=== PATIENT | female | born 1965 | race Caucasian/White ===

== ENCOUNTER 2017-09-23 14:26 | Emergency (ER) | payer MEDICAID ==
[~2017-09-23] VITALS: Ht 177.8 cm; Wt 86.0 kg
[2017-09-23] MEDS ORDERED: LIDOcaine 1.5% w/epinephrine 1:200,000 5ml ampul IJ ONE (17:00)
[2017-09-23 18:02] VITALS: BP 118/72
== END 2017-09-23 18:00 | disposition home or self-care (01) ==
LOC: ER 14:26
DX: R18.8 Other ascites (principal); I95.9 Hypotension, unspecified; Z88.1 Allergy status to other antibiotic agents
CPT/HCPCS: 49083; 99285; J3490

== ENCOUNTER 2017-10-01 16:50 | Emergency (ER) | payer MEDICAID ==
[~2017-10-01] VITALS: Ht 177.8 cm; Wt 85.0 kg
[~2017-10-01 16:50] MED LIST: FURO40TA4 PO; LACT10SO PO; MAGN400C PO; POTA10TA15 PO; RIFA550T PO; SPIR50TA3 PO
[2017-10-01 17:50] LABS: BASOPHILS # (AUTO) 0.1 X10'3 (0-0.2); BASOPHILS % (AUTO) 0.7 % (0-1); EOSINOPHILS # (AUTO) 0.2 X10'3 (0-0.9); EOSINOPHILS % (AUTO) 2.4 % (0-6); HEMATOCRIT 28.5 % (35.0-45.0); HEMOGLOBIN 9.6 g/dl (12.0-16.0); LYMPHOCYTES # (AUTO) 2.1 X10'3 (1.1-4.8); LYMPHOCYTES % (AUTO) 25.2 % (21-51); MEAN CORPUSCULAR HEMOGLOBIN 37.1 PG (27.0-31.0); MEAN CORPUSCULAR HGB CONC 33.8 % (33.0-36.5); MEAN CORPUSCULAR VOLUME 109.7 FL (78-98); MEAN PLATELET VOLUME 7.3 FL (7.4-10.4); MONOCYTES # (AUTO) 0.7 X10'3 (0-0.9); MONOCYTES % (AUTO) 8.8 % (2-12); NEUTROPHILS # (AUTO) 5.1 X10'3 (1.8-7.7); NEUTROPHILS % (AUTO) 62.9 % (42-75); PLATELET COUNT 282 X10'3 (140-440); WHITE BLOOD COUNT 8.2 X10'3 (4.5-11.0)
[2017-10-01 17:59] LABS: INR 1.6 INR; PARTIAL THROMBOPLASTIN TIME 27 SECONDS (22-32); PROTHROMBIN TIME 16.7 SECONDS (9.0-12.0)
[2017-10-01 18:03] LABS: ALANINE AMINOTRANSFERASE 52 U/L (12-78); ALBUMIN 2.3 G/DL (3.4-5.0); ALKALINE PHOSPHATASE 149 IU/L (46-116); ANION GAP 11 (8-16); ASPARTATE AMINO TRANSFERASE 105 U/L (10-37); BILIRUBIN,TOTAL 6.7 MG/DL (0.1-1.0); BLOOD UREA NITROGEN 10 MG/DL (7-18); BUN/CREATININE RATIO 8.3 (6.6-38.0); CALCIUM 8.7 MG/DL (8.5-10.1); CHLORIDE 99 MMOL/L (99-107); ETHANOL < 0.010 GM/DL (0.0-0.010); GLUCOSE 93 MG/DL (70-104); MAGNESIUM 1.8 MG/DL (1.5-2.4); SODIUM 132 MMOL/L (135-145); TOTAL CARBON DIOXIDE 22.5 MMOL/L (24-32); eGFR 48 ML/MIN
[2017-10-01 18:07] LABS: ALBUMIN/GLOBULIN RATIO 0.5 (1.1-1.5); TOTAL PROTEIN 7.2 G/DL (6.4-8.2)
[2017-10-01 18:24] VITALS: BP 134/68
[2017-10-01] MEDS ORDERED: FURO-149 PO (18:54)
== END 2017-10-01 19:06 | disposition home or self-care (01) ==
LOC: ER 16:50
DX: K70.31 Alcoholic cirrhosis of liver with ascites (principal); R60.9 Edema, unspecified; Z88.1 Allergy status to other antibiotic agents; Z79.899 Other long term (current) drug therapy
CPT/HCPCS: 36415; 80053; 80320; 82140; 83735; 85025; 85610; 85730; 93005; 99285

== ENCOUNTER 2017-10-04 07:07 | Day surgery (SDC) | payer MEDICAID ==
[2017-10-04] VITALS (7 sets, daily range): BP systolic 110–123; BP diastolic 60–67
[~2017-10-04] VITALS: Ht 177.8 cm; Wt 88.3 kg
[~2017-10-04 07:07] MED LIST changes: +FURO-149 PO; +LIDOcaine 1% 30ml preserv. free vial SQ ONE
[2017-10-04] MEDS ORDERED: albumin (human) 25% 100 ML IV solution IV PRN (07:30)
[2017-10-04] MEDS ORDERED: normal saline 1000ml 1,000 ML IV PRN (07:30)
== END 2017-10-04 10:05 | disposition home or self-care (01) ==
LOC: SSTAY O 07:07
PROVIDERS: ATTEND Radiology Diagnostic Radiology
DX: K70.31 Alcoholic cirrhosis of liver with ascites (principal); F10.21 Alcohol dependence, in remission; I95.9 Hypotension, unspecified; Z88.1 Allergy status to other antibiotic agents; Z79.01 Long term (current) use of anticoagulants; Z79.899 Other long term (current) drug therapy; Z98.890 Other specified postprocedural states; Z86.14 Personal history of Methicillin resistant Staphylococcus aureus infection
CPT/HCPCS: 49083; A6257; J3490; J7030; P9047

== ENCOUNTER 2017-10-11 07:06 | Day surgery (SDC) | payer MEDICAID ==
[~2017-10-11] VITALS: Ht 177.8 cm; Wt 85.9 kg
[2017-10-11] VITALS (27 sets, daily range): BP systolic 80–128; BP diastolic 22–68
[~2017-10-11 07:06] MED LIST changes: -LIDOcaine 1% 30ml preserv. free vial SQ ONE; -SPIR50TA3 PO; +SPIR50TA5 PO
[2017-10-11] MEDS ORDERED: albumin (human) 25% 100 ML IV solution IV PRN (07:30)
[2017-10-11] MEDS ORDERED: normal saline 1000ml 1,000 ML IV PRN (07:30)
[2017-10-11] MEDS ORDERED: LIDOcaine 1% 30ml preserv. free vial SQ ONE (08:00)
[2017-10-11] MEDS ORDERED: ibuprofen tablet 400 MG TABLET PO ONE (10:15)
== END 2017-10-11 12:45 | disposition home or self-care (01) ==
LOC: SSTAY O 07:06
PROVIDERS: ATTEND Radiology Diagnostic Radiology
DX: J90 Pleural effusion, not elsewhere classified (principal); K70.31 Alcoholic cirrhosis of liver with ascites; Z72.89 Other problems related to lifestyle; Z79.891 Long term (current) use of opiate analgesic; Z79.2 Long term (current) use of antibiotics; Z86.14 Personal history of Methicillin resistant Staphylococcus aureus infection; Z88.1 Allergy status to other antibiotic agents; Z79.01 Long term (current) use of anticoagulants; Z79.899 Other long term (current) drug therapy; Z98.890 Other specified postprocedural states
CPT/HCPCS: 32555; 49083; 71045; A6257; J3490; J7030; P9047

== ENCOUNTER 2017-10-31 21:24 | Inpatient (IN) | payer MEDICAID ==
[~2017-10-31] VITALS: Ht 175.3 cm; Wt 90.0 kg
[~2017-10-31 21:24] MED LIST changes: -FURO-149 PO; -RIFA550T PO
[2017-10-31] MEDS ORDERED: normal saline 1000ML IV soln IVB ONE (21:35)
[2017-10-31 22:29] LABS: PARTIAL THROMBOPLASTIN TIME 33 SECONDS (22-32)
[2017-10-31 22:36] LABS: GLUCOSE 102 MG/DL (70-104)
[2017-10-31 22:36] LABS: BASOPHILS % (AUTO) 0.3 % (0-1); EOSINOPHILS # (AUTO) 0.3 X10'3 (0-0.9); EOSINOPHILS % (AUTO) 2.6 % (0-6); HEMATOCRIT 29.5 % (35.0-45.0); HEMOGLOBIN 10.1 g/dl (12.0-16.0); LYMPHOCYTES # (AUTO) 1.5 X10'3 (1.1-4.8); LYMPHOCYTES % (AUTO) 12.2 % (21-51); MEAN CORPUSCULAR HEMOGLOBIN 35.5 PG (27.0-31.0); MEAN CORPUSCULAR HGB CONC 34.2 % (33.0-36.5); MEAN CORPUSCULAR VOLUME 103.6 FL (78-98); MEAN PLATELET VOLUME 6.8 FL (7.4-10.4); MONOCYTES # (AUTO) 0.9 X10'3 (0-0.9); MONOCYTES % (AUTO) 7.1 % (2-12); NEUTROPHILS # (AUTO) 9.5 X10'3 (1.8-7.7); NEUTROPHILS % (AUTO) 77.8 % (42-75); PLATELET COUNT 343 X10'3 (140-440); RED BLOOD COUNT 2.84 X10'6 (4.20-5.60); RED CELL DISTRIBUTION WIDTH 19.8 % (11.5-14.5); WHITE BLOOD COUNT 12.2 X10'3 (4.5-11.0)
[2017-10-31 22:37] LABS: ALANINE AMINOTRANSFERASE 41 U/L (12-78); ALBUMIN 2.1 G/DL (3.4-5.0); ALKALINE PHOSPHATASE 147 IU/L (46-116); ANION GAP 9 (8-16); BILIRUBIN,TOTAL 6.6 MG/DL (0.1-1.0); BLOOD UREA NITROGEN 8 MG/DL (7-18); BUN/CREATININE RATIO 10.8 (6.6-38.0); CALCIUM 8.8 MG/DL (8.5-10.1); CHLORIDE 83 MMOL/L (99-107); CREATININE 0.74 MG/DL (0.40-0.90); ETHANOL < 0.010 GM/DL (0.0-0.010); MAGNESIUM 1.7 MG/DL (1.5-2.4); TOTAL CARBON DIOXIDE 20.3 MMOL/L (24-32); eGFR 83 ML/MIN
[2017-10-31 22:38] LABS: LACTIC SEPSIS 1.9 MMOL/L (0.4-2.0)
[2017-10-31 22:40] LABS: ALBUMIN/GLOBULIN RATIO 0.5 (1.1-1.5); ASPARTATE AMINO TRANSFERASE 92 U/L (10-37); CREATINE KINASE 53 U/L (26-192); PHOSPHORUS 3.5 MG/DL (2.3-4.5)
[2017-10-31 22:46] LABS: SODIUM 112 MMOL/L (135-145)
[2017-10-31 23:26] LABS: AMMONIA < 10 UMOL/L (11-32)
[2017-11-01 00:46] LABS: ALANINE AMINOTRANSFERASE 41 U/L (12-78); ALBUMIN 2.1 G/DL (3.4-5.0); ALKALINE PHOSPHATASE 157 IU/L (46-116); ANION GAP 9 (8-16); BILIRUBIN,TOTAL 6.5 MG/DL (0.1-1.0); BLOOD UREA NITROGEN 8 MG/DL (7-18); BUN/CREATININE RATIO 10.3 (6.6-38.0); CALCIUM 8.8 MG/DL (8.5-10.1); CHLORIDE 85 MMOL/L (99-107); CREATININE 0.78 MG/DL (0.40-0.90); GLUCOSE 94 MG/DL (70-104); TOTAL CARBON DIOXIDE 20.2 MMOL/L (24-32); eGFR 78 ML/MIN
[2017-11-01 00:53] LABS: SODIUM 114 MMOL/L (135-145)
[2017-11-01 00:54] LABS: POTASSIUM 5.5 MMOL/L (3.5-5.1)
[2017-11-01] MEDS ORDERED: POLY17PO10 PO (01:31)
[2017-11-01] MEDS ORDERED: CALC300T4 PO (01:31)
[2017-11-01] MEDS ORDERED: HYDR-569 PO ×2 (01:31)
[2017-11-01] MEDS ORDERED: MYL80T PO (01:31)
[2017-11-01] MEDS ORDERED: RIFA550T PO (01:31)
[2017-11-01] MEDS ORDERED: FOLI1TAB16 PO (01:31)
[2017-11-01] MEDS ORDERED: FURO-150 PO (01:31)
[2017-11-01] MEDS ORDERED: ONDA4TAB9 SL (01:31)
[2017-11-01] MEDS ORDERED: DOCU-28 PO (01:31)
[2017-11-01] MEDS ORDERED: LACT1CAP94 PO (01:31)
[2017-11-01] MEDS ORDERED: SPIR50TA5 PO (01:31)
[2017-11-01] MEDS ORDERED: THI100T PO (01:31)
[2017-11-01] MEDS ORDERED: DIGO125T PO (01:31)
[2017-11-01] MEDS ORDERED: ACET-1008 PO (01:31)
[2017-11-01] MEDS ORDERED: ondansetron/PF 4mg/2ml inj IV PRN (02:30)
[2017-11-01] MEDS ORDERED: calcium carbonate 500mg chew tablet PO PRN (02:35)
[2017-11-01] MEDS ORDERED: ondansetron 4mg rapidly disintigrating tab PO PRN (02:35)
[2017-11-01] MEDS: normal saline 1000ml 1,000 ML IV SCH (02:43)
[2017-11-01 04:18] LABS: CLARITY,URINE CLEAR (Clear); COLOR,URINE YELLOW (Yellow); GLUCOSE, URINE NEGATIVE (Neg); KETONES,URINE NEGATIVE (Neg); LEUKOCYTE ESTERASE ,URINE NEGATIVE (Neg); NITRITES, URINE NEGATIVE (Neg); OCCULT BLOOD,URINE NEGATIVE (Neg); PROTEIN,URINE NEGATIVE (Neg); UROBILINOGEN,URINE 0.2 E.U/dL (0.2-1.0)
[2017-11-01 04:30] LABS: URINE AMPHETAMINE SCREEN NEGATIVE (Neg); URINE BARBITUATE SCREEN NEGATIVE (Neg); URINE BENZODIAZEPINES SCREEN NEGATIVE (Neg); URINE CANNABINOID SCREEN NEGATIVE (Neg); URINE COCAINE SCREEN NEGATIVE (Neg); URINE METHADONE SCREEN NEGATIVE (Neg); URINE OPIATE SCREEN POSITIVE (Neg); URINE PHENCYCLIDINE SCREEN NEGATIVE (Neg)
[2017-11-01 04:36] LABS: UA COLLECTION TYPE CLN CATCH MIDSTREAM
[2017-11-01 04:48] VITALS: BP 106/50
[2017-11-01 07:28] VITALS: BP 107/53
[2017-11-01] MEDS: digoxin 125mcg (0.125mg) tablet PO SCH (09:18)
[2017-11-01] MEDS: thiamine 100mg tablet PO SCH ×2 (09:19→19:05)
[2017-11-01] MEDS: magnesium oxide 400mg tablet PO SCH (09:19)
[2017-11-01] MEDS: folic acid 1mg tablet PO SCH (09:20)
[2017-11-01] MEDS: lactobacillus rhamnosus 10,000 MMU CELLS/CAPSULE PO SCH ×2 (09:20→19:05)
[2017-11-01] MEDS: simethicone 80mg chew tab PO SCH ×2 (09:20→16:59)
[2017-11-01] MEDS: rifaximin 550mg tablet PO SCH ×2 (09:21→19:05)
[2017-11-01 10:35] LABS: BASOPHILS % (AUTO) 0.2 % (0-1); EOSINOPHILS # (AUTO) 0.2 X10'3 (0-0.9); EOSINOPHILS % (AUTO) 1.9 % (0-6); HEMOGLOBIN 8.9 g/dl (12.0-16.0); LYMPHOCYTES % (AUTO) 8.8 % (21-51); MEAN CORPUSCULAR HEMOGLOBIN 36.1 PG (27.0-31.0); MEAN CORPUSCULAR HGB CONC 34.4 % (33.0-36.5); MEAN CORPUSCULAR VOLUME 104.8 FL (78-98); MEAN PLATELET VOLUME 6.6 FL (7.4-10.4); MONOCYTES % (AUTO) 8.7 % (2-12); NEUTROPHILS # (AUTO) 8.9 X10'3 (1.8-7.7); NEUTROPHILS % (AUTO) 80.4 % (42-75); PLATELET COUNT 311 X10'3 (140-440); RED BLOOD COUNT 2.48 X10'6 (4.20-5.60); RED CELL DISTRIBUTION WIDTH 19.5 % (11.5-14.5); WHITE BLOOD COUNT 11.1 X10'3 (4.5-11.0)
[2017-11-01 10:53] LABS: ALANINE AMINOTRANSFERASE 43 U/L (12-78); ALBUMIN/GLOBULIN RATIO 0.6 (1.1-1.5); ALKALINE PHOSPHATASE 136 IU/L (46-116); ANION GAP 8 (8-16); ASPARTATE AMINO TRANSFERASE 98 U/L (10-37); BILIRUBIN,TOTAL 5.6 MG/DL (0.1-1.0); BLOOD UREA NITROGEN 8 MG/DL (7-18); BUN/CREATININE RATIO 10.7 (6.6-38.0); CALCIUM 7.9 MG/DL (8.5-10.1); CHLORIDE 89 MMOL/L (99-107); CREATININE 0.75 MG/DL (0.40-0.90); GLUCOSE 85 MG/DL (70-104); POTASSIUM 5.2 MMOL/L (3.5-5.1); TOTAL CARBON DIOXIDE 21.9 MMOL/L (24-32); TOTAL PROTEIN 5.5 G/DL (6.4-8.2); eGFR 82 ML/MIN
[2017-11-01 10:55] LABS: SODIUM 119 MMOL/L (135-145)
[2017-11-01 12:00] VITALS: BP 124/52
[2017-11-01] MEDS: HYDROcodone/acetaminophen 5mg/325mg tablet PO PRN (12:27)
[2017-11-01] MEDS: lactulose 20gm/30ml cup PO SCH ×3 (12:28→19:10)
[2017-11-01] MEDS: LORazepam 2 mg/ml vial IV PRN (17:00)
[2017-11-01 20:00] VITALS: BP 98/55
[2017-11-01] MEDS: docusate sod 100mg capsule PO SCH (21:00)
[2017-11-02] VITALS: BP 95/47
[2017-11-02] MEDS: lactulose 20gm/30ml cup PO SCH ×4 (02:00→20:00)
[2017-11-02 05:03] LABS: BASOPHILS % (AUTO) 0.2 % (0-1); EOSINOPHILS # (AUTO) 0.2 X10'3 (0-0.9); EOSINOPHILS % (AUTO) 2.1 % (0-6); LYMPHOCYTES # (AUTO) 1.3 X10'3 (1.1-4.8); LYMPHOCYTES % (AUTO) 12.9 % (21-51); MEAN CORPUSCULAR HEMOGLOBIN 35.9 PG (27.0-31.0); MEAN CORPUSCULAR HGB CONC 34.5 % (33.0-36.5); MEAN CORPUSCULAR VOLUME 103.9 FL (78-98); MEAN PLATELET VOLUME 6.5 FL (7.4-10.4); MONOCYTES % (AUTO) 10.1 % (2-12); NEUTROPHILS # (AUTO) 7.3 X10'3 (1.8-7.7); NEUTROPHILS % (AUTO) 74.7 % (42-75); PLATELET COUNT 302 X10'3 (140-440); RED CELL DISTRIBUTION WIDTH 19.4 % (11.5-14.5); WHITE BLOOD COUNT 9.8 X10'3 (4.5-11.0)
[2017-11-02 05:51] LABS: ALANINE AMINOTRANSFERASE 52 U/L (12-78); ALBUMIN/GLOBULIN RATIO 0.5 (1.1-1.5); ALKALINE PHOSPHATASE 120 IU/L (46-116); ANION GAP 12 (8-16); ASPARTATE AMINO TRANSFERASE 126 U/L (10-37); BILIRUBIN,TOTAL 6.9 MG/DL (0.1-1.0); BLOOD UREA NITROGEN 8 MG/DL (7-18); BUN/CREATININE RATIO 10.8 (6.6-38.0); CALCIUM 8.2 MG/DL (8.5-10.1); CHLORIDE 93 MMOL/L (99-107); CREATININE 0.74 MG/DL (0.40-0.90); GLUCOSE 74 MG/DL (70-104); SODIUM 123 MMOL/L (135-145); TOTAL CARBON DIOXIDE 18.1 MMOL/L (24-32); TOTAL PROTEIN 5.7 G/DL (6.4-8.2); eGFR 83 ML/MIN
[2017-11-02 08:00] VITALS: BP 108/64
[2017-11-02 08:30] VITALS: BP 108/64
[2017-11-02] MEDS: thiamine 100mg tablet PO SCH ×2 (08:48→20:00)
[2017-11-02] MEDS: lactobacillus rhamnosus 10,000 MMU CELLS/CAPSULE PO SCH ×2 (08:48→20:00)
[2017-11-02] MEDS: simethicone 80mg chew tab PO SCH ×3 (08:49→16:58)
[2017-11-02] MEDS: magnesium oxide 400mg tablet PO SCH (08:50)
[2017-11-02] MEDS: digoxin 125mcg (0.125mg) tablet PO SCH (08:51)
[2017-11-02] MEDS: folic acid 1mg tablet PO SCH (08:51)
[2017-11-02] MEDS: rifaximin 550mg tablet PO SCH ×2 (08:52→20:44)
[2017-11-02] MEDS: LORazepam 2 mg/ml vial IV PRN (09:50)
[2017-11-02] MEDS ORDERED: LORazepam 2 mg/ml vial IV ONE (09:50)
[2017-11-02 11:00] VITALS: BP 103/56
[2017-11-02 18:00] VITALS: BP 114/58
[2017-11-02] MEDS: docusate sod 100mg capsule PO SCH (20:45)
[2017-11-02] MEDS: HYDROcodone/acetaminophen 5mg/325mg tablet PO PRN (22:03)
[2017-11-03] VITALS: BP 103/44
[2017-11-03] MEDS: lactulose 20gm/30ml cup PO SCH ×3 (02:00→14:08)
[2017-11-03] MEDS: normal saline 1000ml 1,000 ML IV SCH (03:09)
[2017-11-03 04:30] LABS: BASOPHILS % (AUTO) 0.5 % (0-1); EOSINOPHILS # (AUTO) 0.1 X10'3 (0-0.9); EOSINOPHILS % (AUTO) 0.9 % (0-6); HEMOGLOBIN 8.1 g/dl (12.0-16.0); LYMPHOCYTES # (AUTO) 1.3 X10'3 (1.1-4.8); LYMPHOCYTES % (AUTO) 16.4 % (21-51); MEAN CORPUSCULAR HEMOGLOBIN 35.3 PG (27.0-31.0); MEAN CORPUSCULAR HGB CONC 33.7 % (33.0-36.5); MEAN CORPUSCULAR VOLUME 104.7 FL (78-98); MEAN PLATELET VOLUME 6.5 FL (7.4-10.4); MONOCYTES # (AUTO) 0.9 X10'3 (0-0.9); MONOCYTES % (AUTO) 10.9 % (2-12); NEUTROPHILS # (AUTO) 5.8 X10'3 (1.8-7.7); NEUTROPHILS % (AUTO) 71.3 % (42-75); PLATELET COUNT 302 X10'3 (140-440); RED BLOOD COUNT 2.29 X10'6 (4.20-5.60); RED CELL DISTRIBUTION WIDTH 20.1 % (11.5-14.5); WHITE BLOOD COUNT 8.1 X10'3 (4.5-11.0)
[2017-11-03] MEDS: HYDROcodone/acetaminophen 5mg/325mg tablet PO PRN ×2 (04:39→11:44)
[2017-11-03 04:58] LABS: ALANINE AMINOTRANSFERASE 54 U/L (12-78); ALBUMIN 1.8 G/DL (3.4-5.0); ALKALINE PHOSPHATASE 112 IU/L (46-116); ANION GAP 8 (8-16); ASPARTATE AMINO TRANSFERASE 127 U/L (10-37); BILIRUBIN,TOTAL 6.6 MG/DL (0.1-1.0); BLOOD UREA NITROGEN 7 MG/DL (7-18); BUN/CREATININE RATIO 9.6 (6.6-38.0); CALCIUM 8.3 MG/DL (8.5-10.1); CHLORIDE 97 MMOL/L (99-107); CREATININE 0.73 MG/DL (0.40-0.90); GLUCOSE 74 MG/DL (70-104); SODIUM 126 MMOL/L (135-145); eGFR 84 ML/MIN
[2017-11-03 05:03] LABS: ALBUMIN/GLOBULIN RATIO 0.5 (1.1-1.5); POTASSIUM 4.7 MMOL/L (3.5-5.1); TOTAL PROTEIN 5.2 G/DL (6.4-8.2)
[2017-11-03 07:31] VITALS: BP 97/48
[2017-11-03] MEDS: simethicone 80mg chew tab PO SCH ×3 (08:40→16:39)
[2017-11-03] MEDS: digoxin 125mcg (0.125mg) tablet PO SCH (08:41)
[2017-11-03] MEDS: thiamine 100mg tablet PO SCH (08:41)
[2017-11-03] MEDS: magnesium oxide 400mg tablet PO SCH (08:41)
[2017-11-03] MEDS: lactobacillus rhamnosus 10,000 MMU CELLS/CAPSULE PO SCH (08:41)
[2017-11-03] MEDS: folic acid 1mg tablet PO SCH (08:41)
[2017-11-03] MEDS: rifaximin 550mg tablet PO SCH (08:42)
[2017-11-03 11:27] VITALS: BP 107/52
[2017-11-03] MEDS ORDERED: clindamycin 1% topical susp 60ml bottle TP SCH (20:00)
== END 2017-11-03 17:25 | DRG 279 ==
LOC: ER 21:24 → ED HOLD 11-01 02:29 → SUR 3N 11-01 04:13
PROVIDERS: ADMIT Internal Medicine; ATTEND Internal Medicine
DX: K72.90 Hepatic failure, unspecified without coma (principal); G93.41 Metabolic encephalopathy; E87.1 Hypo-osmolality and hyponatremia; E87.5 Hyperkalemia; D63.8 Anemia in other chronic diseases classified elsewhere; K70.31 Alcoholic cirrhosis of liver with ascites; Z88.1 Allergy status to other antibiotic agents; Z79.899 Other long term (current) drug therapy
CPT/HCPCS: 36415; 70450; 70544; 70551; 71045; 76700; 80053; 80162; 80305; 80320; 80329; 81003; 82140; 82550; 83605; 83735; 84100; 84484; 85025; 85610; 85730; 86885; 86900; 86901; 87040; 87070; 96361; 96374; 97116; 97161; 97530; 99285; J2060; J2405; J7030

== ENCOUNTER 2017-11-09 08:00 | Outpatient (CLI) | payer MEDICAID ==
[~2017-11-09 08:00] MED LIST changes: +ACET-1008 PO; +CALC300T4 PO; +DIGO125T PO; +DOCU-28 PO; +FOLI1TAB16 PO; +FURO-150 PO; -FURO40TA4 PO; +HYDR-569 PO; -LACT10SO PO; +LACT1CAP94 PO; +LIDOcaine 1% 30ml preserv. free vial SQ STA; +MYL80T PO; +ONDA4TAB9 SL; +POLY17PO10 PO; -POTA10TA15 PO; +RIFA550T PO; +THI100T PO
== END 2017-11-09 08:01 | disposition home or self-care (01) ==
LOC: SSTAY O 08:00 → EDSTATUS 13:00
PROVIDERS: ATTEND Radiology Diagnostic Radiology
DX: R18.8 Other ascites (principal); Z53.8 Procedure and treatment not carried out for other reasons; F10.21 Alcohol dependence, in remission; I48.0 Paroxysmal atrial fibrillation; Z88.1 Allergy status to other antibiotic agents; Z79.2 Long term (current) use of antibiotics; Z79.01 Long term (current) use of anticoagulants; Z86.14 Personal history of Methicillin resistant Staphylococcus aureus infection; Z79.891 Long term (current) use of opiate analgesic; Z98.890 Other specified postprocedural states; Z79.899 Other long term (current) drug therapy
CPT/HCPCS: A6257